=== PATIENT | female | born 1950 | race Caucasian/White ===

== ENCOUNTER 2024-03-23 17:44 | Inpatient (IN) | payer OTHER, BC ==
[2024-03-23 17:52] VITALS: BMI 35.5
[2024-03-23 19:00] LABS: EOS % 1.9 % (0-4.5); HEMATOCRIT 32.7 % (32.4-45.2); HEMOGLOBIN 9.8 GM/dL (10.7-15.3); LYMPH % 15.2 % (8-40); MCH 22.7 pg (25.7-33.7); MCHC 29.9 g/dl (32.0-36.0); MEAN CELL VOLUME 75.8 fl (80-96); MONO % 10.9 % (3.8-10.2); RBC 4.32 M/mm3 (3.60-5.2); RDW 19.5 % (11.6-15.6); WHITE BLOOD COUNT 9.8 K/mm3 (4.0-10.0)
[2024-03-23 19:18] LABS: POTASSIUM 4.9 mmol/L (3.5-5.1)
[2024-03-23 19:20] LABS: CALCIUM 8.8 mg/dL (8.5-10.1)
[2024-03-23 19:21] LABS: ALBUMIN 3.1 g/dl (3.4-5.0); BLOOD UREA NITROGEN 18.4 mg/dL (7-18)
[2024-03-23 19:24] LABS: CREATININE 1.2 mg/dL (0.55-1.3)
[2024-03-23 19:25] LABS: BILIRUBIN,TOTAL 0.4 mg/dL (0.2-1)
[2024-03-23 19:28] LABS: MEAN PLT VOLUME 8.4 fl (7.5-11.1); PLATELET COUNT 338 10^3/uL (134-434)
[2024-03-23 19:29] LABS: N-TERMINAL BNP 1345.9 pg/ml (5-125)
[2024-03-23 19:31] LABS: ACTIVATED PTT 34.5 SECONDS (25.2-36.5); INR 1.05 (0.83-1.09); PROTHROMBIN TIME (PATIENT) 12.1 SEC (9.7-13.0)
[2024-03-24] MEDS: LEVOTHYROXINE NA 112 MCG TABLET (FP) PO SCH (06:31)
[2024-03-24 08:20] LABS: BASO % 0.6 % (0-2.0); EOS % 1.7 % (0-4.5); HEMATOCRIT 30.1 % (32.4-45.2); HEMOGLOBIN 9.2 GM/dL (10.7-15.3); LYMPH % 12.5 % (8-40); MCH 22.8 pg (25.7-33.7); MCHC 30.6 g/dl (32.0-36.0); MEAN CELL VOLUME 74.4 fl (80-96); MONO % 10.9 % (3.8-10.2); NEUT % 74.3 % (42.8-82.8); PLATELET COUNT 319 10^3/uL (134-434); RBC 4.04 M/mm3 (3.60-5.2); RDW 19.4 % (11.6-15.6); WHITE BLOOD COUNT 6.8 K/mm3 (4.0-10.0)
[2024-03-24 08:36] LABS: POTASSIUM 3.4 mmol/L (3.5-5.1)
[2024-03-24 08:40] LABS: ALBUMIN 2.9 g/dl (3.4-5.0); BLOOD UREA NITROGEN 15.3 mg/dL (7-18); CALCIUM 8.7 mg/dL (8.5-10.1); MAGNESIUM 2.2 mg/dL (1.8-2.4)
[2024-03-24 08:45] LABS: BILIRUBIN,TOTAL 0.7 mg/dL (0.2-1); TOT PROT 6.1 g/dl (6.4-8.2)
[2024-03-24 08:51] LABS: RETICULOCYTES 2.96 % (0.5-1.5)
[2024-03-24] MEDS: HYDROCHLOROTHIAZIDE 12.5 MG CAPSULE (FP) PO SCH (09:45)
[2024-03-24] MEDS: ROSUVASTATIN CA 10 MG TABLET PO SCH (09:48)
[2024-03-24] MEDS: PREGABALIN 75 MG CAPSULE PO SCH (09:48)
[2024-03-24] MEDS: ALLOPURINOL 100 MG TABLET (FP) PO SCH (09:48)
[2024-03-24] MEDS: LISINOPRIL 10 MG TABLET PO SCH (09:54)
[2024-03-24] MEDS: traMADol HCL 50 MG TABLET PO SCH (21:52)
[2024-03-25] MEDS: POTASSIUM CHLORIDE ORAL LIQUID 20 MEQ/15 ML PO ONE (08:32)
[2024-03-25] MEDS: IRON SUCROSE INJECTION 100 MG in SODIUM CHLORIDE 95 ML IVPB ONE (11:05)
[2024-03-26 06:59] LABS: HEMATOCRIT 30.5 % (32.4-45.2); HEMOGLOBIN 9.3 GM/dL (10.7-15.3); MCH 22.7 pg (25.7-33.7); MCHC 30.5 g/dl (32.0-36.0); MEAN CELL VOLUME 74.5 fl (80-96); PLATELET COUNT 309 10^3/uL (134-434); RBC 4.09 M/mm3 (3.60-5.2); RDW 19.6 % (11.6-15.6); WHITE BLOOD COUNT 5.9 K/mm3 (4.0-10.0)
[2024-03-26 07:07] LABS: POTASSIUM 3.9 mmol/L (3.5-5.1)
[2024-03-26 07:10] LABS: CALCIUM 8.5 mg/dL (8.5-10.1)
[2024-03-26 07:11] LABS: BLOOD UREA NITROGEN 15.4 mg/dL (7-18)
[2024-03-26 07:14] LABS: CREATININE 1.2 mg/dL (0.55-1.3)
[2024-03-26] MEDS: PEG 3350/NA SULF BICARB CL/KCL 4000 ML SOLN.RECON PO ONE (16:00)
[2024-03-27 06:54] LABS: HEMATOCRIT 28.7 % (32.4-45.2); HEMOGLOBIN 8.8 GM/dL (10.7-15.3); MCH 22.5 pg (25.7-33.7); MCHC 30.5 g/dl (32.0-36.0); MEAN CELL VOLUME 73.8 fl (80-96); MEAN PLT VOLUME 7.9 fl (7.5-11.1); PLATELET COUNT 270 10^3/uL (134-434); RBC 3.89 M/mm3 (3.60-5.2); RDW 19.7 % (11.6-15.6); WHITE BLOOD COUNT 6.7 K/mm3 (4.0-10.0)
[2024-03-27 07:11] LABS: POTASSIUM 3.4 mmol/L (3.5-5.1)
[2024-03-27 07:13] LABS: ALBUMIN 2.8 g/dl (3.4-5.0); CALCIUM 8.5 mg/dL (8.5-10.1); MAGNESIUM 2.1 mg/dL (1.8-2.4)
[2024-03-27 07:16] LABS: CREATININE 1.1 mg/dL (0.55-1.3)
[2024-03-27 07:17] LABS: PHOSPHOROUS 4.4 mg/dL (2.5-4.9)
[2024-03-27 07:18] LABS: BILIRUBIN,TOTAL 0.6 mg/dL (0.2-1); TOT PROT 5.8 g/dl (6.4-8.2)
[2024-03-27] MEDS: POTASSIUM CHLORIDE TABS 20 MEQ TABLET.ER (FP) PO ONE (09:52)
[2024-03-27] MEDS ORDERED: FUROSEMIDE 40 MG/4 ML INJECTABLE VIAL IVPUSH ONE (11:15)
[2024-03-27] MEDS ORDERED: ALBUTEROL SO4 HFA INHALER IH ONE (12:02)
[2024-03-27] MEDS: FUROSEMIDE 40 MG/4 ML INJECTABLE VIAL IVPUSH ONE (14:20)
[2024-03-28 08:49] LABS: HEMATOCRIT 30.7 % (32.4-45.2); HEMOGLOBIN 9.2 GM/dL (10.7-15.3); MCH 22.4 pg (25.7-33.7); MEAN CELL VOLUME 74.7 fl (80-96); MEAN PLT VOLUME 8.3 fl (7.5-11.1); PLATELET COUNT 268 10^3/uL (134-434); RBC 4.11 M/mm3 (3.60-5.2); RDW 19.7 % (11.6-15.6); WHITE BLOOD COUNT 6.9 K/mm3 (4.0-10.0)
[2024-03-28 09:03] LABS: POTASSIUM 3.6 mmol/L (3.5-5.1)
[2024-03-28 09:17] LABS: ALBUMIN 2.8 g/dl (3.4-5.0); CALCIUM 8.5 mg/dL (8.5-10.1)
[2024-03-28 09:18] LABS: BLOOD UREA NITROGEN 13.5 mg/dL (7-18)
[2024-03-28 09:20] LABS: CREATININE 1.1 mg/dL (0.55-1.3); PHOSPHOROUS 4.1 mg/dL (2.5-4.9)
[2024-03-28 09:21] LABS: BILIRUBIN,TOTAL 0.8 mg/dL (0.2-1); TOT PROT 6.1 g/dl (6.4-8.2)
[2024-03-28] MEDS: FERROUS GLUCONATE 324 MG TAB (FP) PO SCH (09:49)
[2024-03-28] MEDS: POTASSIUM CHLORIDE ORAL LIQUID 20 MEQ/15 ML PO ONE (09:53)
[2024-03-28] MEDS ORDERED: metroNIDAZOLE 250 MG TABLET PO SCH (16:00)
[2024-03-28] MEDS: HEPARIN INFUSION - 25,000 UNITS/500 ML INFUS.BAG IVPB SCH (16:04)
[2024-03-28] MEDS: DOXYCYCLINE HYCLATE 100 MG CAPSULE PO SCH (17:06)
[2024-03-28] MEDS: BISMUTH SUBSALICYLATE 524 MG/30 ML PO SCH (17:07)
[2024-03-28] MEDS ORDERED: DOXYCYCLINE HYCLATE 100 MG CAPSULE PO SCH (18:00)
[2024-03-28] MEDS: PANTOPRAZOLE 20 MG TABLET PO SCH (22:31)
[2024-03-28] MEDS: metroNIDAZOLE 500 MG TABLET PO SCH (22:33)
[2024-03-29 07:06] LABS: HEMATOCRIT 31.4 % (32.4-45.2); HEMOGLOBIN 9.5 GM/dL (10.7-15.3); MCH 22.6 pg (25.7-33.7); MCHC 30.2 g/dl (32.0-36.0); MEAN CELL VOLUME 74.9 fl (80-96); MEAN PLT VOLUME 8.3 fl (7.5-11.1); PLATELET COUNT 276 10^3/uL (134-434); RBC 4.19 M/mm3 (3.60-5.2); RDW 19.6 % (11.6-15.6); WHITE BLOOD COUNT 5.5 K/mm3 (4.0-10.0)
[2024-03-29 07:21] LABS: CALCIUM 8.4 mg/dL (8.5-10.1)
[2024-03-29 07:22] LABS: ALBUMIN 2.7 g/dl (3.4-5.0); BLOOD UREA NITROGEN 16.6 mg/dL (7-18); MAGNESIUM 2.2 mg/dL (1.8-2.4)
[2024-03-29 07:25] LABS: CREATININE 1.2 mg/dL (0.55-1.3); PHOSPHOROUS 4.4 mg/dL (2.5-4.9)
[2024-03-29 07:26] LABS: BILIRUBIN,TOTAL 0.5 mg/dL (0.2-1); TOT PROT 5.9 g/dl (6.4-8.2)
[2024-03-29] MEDS: FUROSEMIDE 40 MG/4 ML INJECTABLE VIAL IVPUSH SCH (10:12)
[2024-03-29] MEDS: IRON SUCROSE INJECTION 100 MG in SODIUM CHLORIDE 95 ML IVPB ONE (10:14)
[2024-03-29] MEDS: SODIUM CHLORIDE 500 ML IV SCH (15:40)
[2024-03-29] MEDS ORDERED: ENOXAPARIN NA (PORCINE) 100 MG/1 ML DISP.SYRIN SQ SCH (18:00)
[2024-03-29] MEDS: ENOXAPARIN NA (PORCINE) 100 MG/1 ML DISP.SYRIN SQ SCH (21:07)
[2024-03-30 07:26] LABS: BASO % 0.7 % (0-2.0); EOS % 5.1 % (0-4.5); HEMATOCRIT 32.9 % (32.4-45.2); HEMOGLOBIN 10.2 GM/dL (10.7-15.3); LYMPH % 17.2 % (8-40); MEAN CELL VOLUME 74.2 fl (80-96); MEAN PLT VOLUME 8.7 fl (7.5-11.1); MONO % 10.5 % (3.8-10.2); NEUT % 66.5 % (42.8-82.8); PLATELET COUNT 308 10^3/uL (134-434); RBC 4.44 M/mm3 (3.60-5.2); RDW 20.7 % (11.6-15.6); WHITE BLOOD COUNT 5.8 K/mm3 (4.0-10.0)
[2024-03-30 07:49] LABS: POTASSIUM 3.6 mmol/L (3.5-5.1)
[2024-03-30 07:57] LABS: ALBUMIN 2.9 g/dl (3.4-5.0); BLOOD UREA NITROGEN 19.1 mg/dL (7-18); CALCIUM 8.5 mg/dL (8.5-10.1); MAGNESIUM 2.1 mg/dL (1.8-2.4)
[2024-03-30 08:00] LABS: BILIRUBIN,TOTAL 0.5 mg/dL (0.2-1); CREATININE 1.2 mg/dL (0.55-1.3); PHOSPHOROUS 4.2 mg/dL (2.5-4.9)
[2024-03-30 08:01] LABS: TOT PROT 6.4 g/dl (6.4-8.2)
[2024-03-30] MEDS: SODIUM CHLORIDE 250 ML IV STA ×2 (09:16→14:23)
[2024-03-30] MEDS: ENOXAPARIN NA (PORCINE) 100 MG/1 ML DISP.SYRIN SQ SCH (09:17)
[2024-03-30 09:23] LABS: ANISOCYTOSIS 2+; MACROCYTOSIS 1+
[2024-03-30] MEDS ORDERED: SODIUM CHLORIDE 1,000 ML IV SCH (10:00)
[2024-03-30] MEDS: IRON SUCROSE INJECTION 100 MG in SODIUM CHLORIDE 95 ML IVPB ONE (10:00)
[2024-03-30 12:25] VITALS: RESP 18
[2024-03-30] MEDS: SODIUM CHLORIDE 1,000 ML IV SCH (14:24)
[2024-03-30 17:11] VITALS: PULSE 84
[2024-03-30 21:43] VITALS: BP 116/94; TEMP 9802
== END 2024-03-30 21:53 | disposition home or self-care (01) | DRG 375 ==
LOC: JER 17:44 → INTOOBSV 22:47 → JERBED 22:47 → J4W 03-24 00:34 → OBSVTOIN 03-24 10:56
PROVIDERS: ADMIT Student in an Organized Health Care Education/Training Program; ATTEND Internal Medicine
PROC: 0DB68ZX Excision of Stomach, Via Natural or Artificial Opening Endoscopic, Diagnostic (ICD-10-PCS; 2024-03-27)
PROC: 0DBK8ZX Excision of Ascending Colon, Via Natural or Artificial Opening Endoscopic, Diagnostic (ICD-10-PCS; 2024-03-27)
PROC: 0DB98ZX Excision of Duodenum, Via Natural or Artificial Opening Endoscopic, Diagnostic (ICD-10-PCS; principal; 2024-03-27 12:15)
DX: C18.2 Malignant neoplasm of ascending colon (principal); A04.8 Other specified bacterial intestinal infections; I48.21 Permanent atrial fibrillation; D50.9 Iron deficiency anemia, unspecified; I11.0 Hypertensive heart disease with heart failure; E03.9 Hypothyroidism, unspecified; E78.5 Hyperlipidemia, unspecified; I48.91 Unspecified atrial fibrillation; K63.89 Other specified diseases of intestine; B96.81 Helicobacter pylori [H. pylori] as the cause of diseases classified elsewhere; K29.50 Unspecified chronic gastritis without bleeding; E87.6 Hypokalemia
CPT/HCPCS: 36415; 71045-TC-FY; 71250-TC; 74177-TC; 80048; 80053; 82272; 82550; 82607; 82728; 82746; 83540; 83550; 83735; 83880; 84100; 84436; 84443; 84466; 84484; 85025; 85027; 85045; 85610; 85730; 86850; 86900; 86901; 88305-TC; 88341-TC; 88342-TC; 93005; 93010; 93306-TC; 97116-GP; 97161-GP; 99285-25; G0378; J1644; J1756; Q9967

== ENCOUNTER 2024-04-11 04:22 | Inpatient (IN) | payer OTHER, BC ==
[2024-04-10 13:15] VITALS: BMI 35.3
[2024-04-11] MEDS: BUPIVACAINE HCL/PF 0.25% (2.5MG/ML) 10 ML VIAL IJ ONE
[2024-04-11] MEDS ORDERED: PROPOFOL 40 ML ONE (12:50)
[2024-04-11] MEDS ORDERED: ROCURONIUM BROMIDE 50 MG/5 ML SYRINGE ONE ×3 (12:55→17:44)
[2024-04-11] MEDS ORDERED: SUCCINYLCHOLINE CHLORIDE 200 MG/10 ML SYRINGE ONE (12:56)
[2024-04-11] MEDS ORDERED: BUPIVACAINE HCL/PF 0.25% (2.5MG/ML) 10 ML VIAL ONE (13:07)
[2024-04-11] MEDS ORDERED: MIDAZOLAM HCL 2 MG/2 ML SINGLE DOSE VIAL ONE (14:43)
[2024-04-11] MEDS ORDERED: HEPARIN NA (PORCINE) 5,000 UNITS/ML 1ML VIAL ONE (14:46)
[2024-04-11] MEDS ORDERED: CEFOXITIN SODIUM 2 GM IVPB ONE (14:46)
[2024-04-11] MEDS ORDERED: INDOCYANINE GREEN 25 MG/10 ML VIAL IVPUSH ONE (14:46)
[2024-04-11] MEDS: cefOXitin SODIUM 2 GM VIAL (RESTRICTED TO ID) IVPB ONE (15:20)
[2024-04-11] MEDS ORDERED: DEXAMETHASONE SOD PHOSPHATE 4 MG/1 ML VIAL ONE (15:45)
[2024-04-11] MEDS: BUPIVACAINE HCL/PF 2.5 MG/ML - 30 ML VIAL IJ ONE (15:45)
[2024-04-11] MEDS ORDERED: PREGABALIN 75 MG CAPSULE PO PRN (16:06)
[2024-04-11] MEDS ORDERED: ACETAMINOPHEN INJECTION 100 ML ONE (18:03)
[2024-04-11] MEDS ORDERED: ONDANSETRON 4 MG/2 ML VIAL ONE (18:23)
[2024-04-11] MEDS ORDERED: SUGAMMADEX SODIUM 200 MG/2 ML VIAL ONE (18:24)
[2024-04-11] MEDS ORDERED: ONDANSETRON 4 MG/2 ML VIAL IVPUSH PRN (19:37)
[2024-04-11] MEDS ORDERED: LACTATED RINGERS SOLUTION 1,000 ML IV SCH (19:45)
[2024-04-11] MEDS ORDERED: ceFAZolin SODIUM 1 GM VIAL ONE (19:55)
[2024-04-11] MEDS: CEFAZOLIN 2 GM/D5W 2 GM/50 ML ML IVPB SCH (19:58)
[2024-04-11] MEDS: SODIUM CHLORIDE 1,000 ML IV SCH (20:33)
[2024-04-11] MEDS ORDERED: ENOXAPARIN NA (PORCINE) 100 MG/1 ML DISP.SYRIN SQ SCH (22:00)
[2024-04-11] MEDS: HEPARIN NA (PORCINE) 5,000 UNITS/ML 1ML VIAL SQ SCH (22:09)
[2024-04-11] MEDS: ACETAMINOPHEN 1000 MG/100 ML BAG IVPB SCH (22:56)
[2024-04-11] MEDS: oxyCODONE HCL 5 MG TABLET PO PRN (22:58)
[2024-04-11] MEDS: PANTOPRAZOLE 20 MG TABLET PO SCH (22:58)
[2024-04-11] MEDS: CYANOCOBALAMIN 1,000 MCG TABLET (FP) PO SCH (22:58)
[2024-04-11] MEDS: FERROUS GLUCONATE 324 MG TAB (FP) PO SCH (23:00)
[2024-04-11] MEDS: ONDANSETRON 4 MG/2 ML VIAL IVPUSH PRN (23:04)
[2024-04-12] MEDS: ACETAMINOPHEN 1000 MG/100 ML BAG IVPB SCH (00:46)
[2024-04-12] MEDS: ONDANSETRON 4 MG/2 ML VIAL IVPUSH ONE (06:09)
[2024-04-12] MEDS: LEVOTHYROXINE NA 112 MCG TABLET (FP) PO SCH (06:10)
[2024-04-12] MEDS ORDERED: ENOXAPARIN NA (PORCINE) 40 MG/0.4 ML DISP.SYRIN SQ SCH (10:00)
[2024-04-12] MEDS: ALLOPURINOL 100 MG TABLET (FP) PO SCH (10:01)
[2024-04-12] MEDS: LISINOPRIL 10 MG TABLET PO SCH (10:01)
[2024-04-12 10:25] LABS: HEMATOCRIT 34.5 % (32.4-45.2); HEMOGLOBIN 10.7 GM/dL (10.7-15.3); MCH 24.2 pg (25.7-33.7); MEAN CELL VOLUME 77.9 fl (80-96); MEAN PLT VOLUME 8.9 fl (7.5-11.1); PLATELET COUNT 297 10^3/uL (134-434); RBC 4.42 M/mm3 (3.60-5.2); RDW 25.9 % (11.6-15.6); WHITE BLOOD COUNT 11.9 K/mm3 (4.0-10.0)
[2024-04-12 12:14] LABS: POTASSIUM 4.5 mmol/L (3.5-5.1)
[2024-04-12 12:23] LABS: CALCIUM 8.6 mg/dL (8.5-10.1)
[2024-04-12 12:24] LABS: BLOOD UREA NITROGEN 9.8 mg/dL (7-18)
[2024-04-12] MEDS: ACETAMINOPHEN 500 MG TABLET (FP) PO SCH (13:08)
[2024-04-12] MEDS: LIDOCAINE 5% TOPICAL PATCH TP SCH (17:12)
[2024-04-12] MEDS: IBUPROFEN 600 MG TABLET (FP) PO SCH (17:12)
[2024-04-12] MEDS: TETRACYCLINE PO SCH (18:04)
[2024-04-12] MEDS: [UNRECOGNIZED DRUG - OTHER] PO SCH (18:04)
[2024-04-12] MEDS: BISMUTH PO SCH (18:04)
[2024-04-12] MEDS: ENOXAPARIN NA (PORCINE) 100 MG/1 ML DISP.SYRIN SQ SCH (21:35)
[2024-04-12] MEDS: ROSUVASTATIN CA 10 MG TABLET PO SCH (21:36)
[2024-04-12] MEDS: LIDOCAINE PATCH REMOVAL MC SCH (22:20)
[2024-04-13 08:44] LABS: BASO % 0.1 % (0-2.0); EOS % 0.1 % (0-4.5); HEMATOCRIT 31.4 % (32.4-45.2); HEMOGLOBIN 9.8 GM/dL (10.7-15.3); LYMPH % 6.9 % (8-40); MCH 24.2 pg (25.7-33.7); MCHC 31.2 g/dl (32.0-36.0); MEAN CELL VOLUME 77.7 fl (80-96); MEAN PLT VOLUME 9.1 fl (7.5-11.1); NEUT % 80.9 % (42.8-82.8); PLATELET COUNT 249 10^3/uL (134-434); RBC 4.05 M/mm3 (3.60-5.2); RDW 26.1 % (11.6-15.6); WHITE BLOOD COUNT 8.2 K/mm3 (4.0-10.0)
[2024-04-13 09:22] LABS: CALCIUM 8.5 mg/dL (8.5-10.1)
[2024-04-13 09:23] LABS: ALBUMIN 2.6 g/dl (3.4-5.0); BLOOD UREA NITROGEN 10.4 mg/dL (7-18); MAGNESIUM 1.8 mg/dL (1.8-2.4)
[2024-04-13 09:27] LABS: BILIRUBIN,TOTAL 0.3 mg/dL (0.2-1); TOT PROT 5.4 g/dl (6.4-8.2)
[2024-04-13] MEDS: oxyCODONE HCL 5 MG TABLET PO PRN (09:38)
[2024-04-13] MEDS ORDERED: ENOXAPARIN NA (PORCINE) 40 MG/0.4 ML DISP.SYRIN SQ SCH (10:00)
[2024-04-13 10:18] LABS: ANISOCYTOSIS 2+; MACROCYTOSIS 0; OVALOCYTE 1+
[2024-04-13 21:28] LABS: BASO % 0.5 % (0-2.0); HEMATOCRIT 35.3 % (32.4-45.2); HEMOGLOBIN 10.6 GM/dL (10.7-15.3); LYMPH % 14.1 % (8-40); MCH 23.7 pg (25.7-33.7); MEAN PLT VOLUME 8.3 fl (7.5-11.1); MONO % 11.1 % (3.8-10.2); NEUT % 73.3 % (42.8-82.8); PLATELET COUNT 295 10^3/uL (134-434); RBC 4.47 M/mm3 (3.60-5.2); RDW 27.2 % (11.6-15.6)
[2024-04-13] MEDS ORDERED: ENOXAPARIN NA (PORCINE) 60 MG/0.6 ML DISP.SYRIN SQ SCH (22:00)
[2024-04-13 22:08] LABS: ADD RBC MORPHOLOGY YES
[2024-04-13 22:31] LABS: PLATELET ESTIMATE ADEQUATE
[2024-04-14 09:23] LABS: BASO % 0.3 % (0-2.0); EOS % 2.1 % (0-4.5); HEMATOCRIT 34.2 % (32.4-45.2); HEMOGLOBIN 10.7 GM/dL (10.7-15.3); LYMPH % 12.2 % (8-40); MCH 24.3 pg (25.7-33.7); MCHC 31.3 g/dl (32.0-36.0); MEAN CELL VOLUME 77.4 fl (80-96); MEAN PLT VOLUME 8.9 fl (7.5-11.1); MONO % 10.9 % (3.8-10.2); NEUT % 74.5 % (42.8-82.8); PLATELET COUNT 283 10^3/uL (134-434); RBC 4.42 M/mm3 (3.60-5.2); RDW 25.7 % (11.6-15.6); WHITE BLOOD COUNT 5.9 K/mm3 (4.0-10.0)
[2024-04-14 09:38] LABS: POTASSIUM 4.1 mmol/L (3.5-5.1)
[2024-04-14 09:43] LABS: CALCIUM 8.7 mg/dL (8.5-10.1)
[2024-04-14 09:44] LABS: ALBUMIN 2.7 g/dl (3.4-5.0); MAGNESIUM 1.8 mg/dL (1.8-2.4)
[2024-04-14 09:46] LABS: CREATININE 0.9 mg/dL (0.55-1.3)
[2024-04-14 09:48] LABS: BILIRUBIN,TOTAL 0.4 mg/dL (0.2-1); TOT PROT 5.8 g/dl (6.4-8.2)
[2024-04-14] MEDS: ENOXAPARIN NA (PORCINE) 60 MG/0.6 ML DISP.SYRIN SQ SCH (10:45)
[2024-04-14] MEDS: LISINOPRIL 10 MG TABLET PO SCH (22:47)
[2024-04-14] MEDS ORDERED: PREGABALIN 75 MG CAPSULE PO PRN (23:05)
[2024-04-15] MEDS: LEVOTHYROXINE NA 112 MCG TABLET (FP) PO SCH (06:51)
[2024-04-15] MEDS: ACETAMINOPHEN 500 MG TABLET (FP) PO SCH (06:51)
[2024-04-15 07:45] LABS: BASO % 1.3 % (0-2.0); EOS % 3.8 % (0-4.5); HEMATOCRIT 33.2 % (32.4-45.2); HEMOGLOBIN 10.1 GM/dL (10.7-15.3); LYMPH % 16.8 % (8-40); MCH 23.7 pg (25.7-33.7); MCHC 30.5 g/dl (32.0-36.0); MEAN CELL VOLUME 77.9 fl (80-96); MEAN PLT VOLUME 8.7 fl (7.5-11.1); MONO % 13.3 % (3.8-10.2); NEUT % 64.8 % (42.8-82.8); PLATELET COUNT 272 10^3/uL (134-434); RBC 4.27 M/mm3 (3.60-5.2); RDW 26.7 % (11.6-15.6); WHITE BLOOD COUNT 5.4 K/mm3 (4.0-10.0)
[2024-04-15 08:08] LABS: POTASSIUM 3.8 mmol/L (3.5-5.1)
[2024-04-15 08:15] LABS: CALCIUM 8.2 mg/dL (8.5-10.1)
[2024-04-15 08:16] LABS: ALBUMIN 2.4 g/dl (3.4-5.0); BLOOD UREA NITROGEN 8.1 mg/dL (7-18); MAGNESIUM 1.8 mg/dL (1.8-2.4)
[2024-04-15 08:19] LABS: CREATININE 0.9 mg/dL (0.55-1.3)
[2024-04-15 08:20] LABS: BILIRUBIN,TOTAL 0.4 mg/dL (0.2-1); TOT PROT 5.1 g/dl (6.4-8.2)
[2024-04-15] MEDS: LIDOCAINE 5% TOPICAL PATCH TP SCH (09:48)
[2024-04-15] MEDS: ENOXAPARIN NA (PORCINE) 60 MG/0.6 ML DISP.SYRIN SQ SCH (09:48)
[2024-04-15] MEDS: PANTOPRAZOLE 20 MG TABLET PO SCH (09:49)
[2024-04-15] MEDS: ALLOPURINOL 100 MG TABLET (FP) PO SCH (09:49)
[2024-04-15] MEDS: ONDANSETRON 4 MG/2 ML VIAL IVPUSH PRN (17:02)
[2024-04-15] MEDS: APIXABAN 5 MG TABLET PO SCH (21:26)
[2024-04-15] MEDS: metoPROLOL SUCCINATE 25 MG TAB.SR.24H (FP) PO SCH (21:26)
[2024-04-15] MEDS: ROSUVASTATIN CA 10 MG TABLET PO SCH (21:26)
[2024-04-15] MEDS: LIDOCAINE PATCH REMOVAL MC SCH (21:28)
[2024-04-15] MEDS: LISINOPRIL 10 MG TABLET PO SCH (21:28)
[2024-04-15] MEDS: CYANOCOBALAMIN 1,000 MCG TABLET (FP) PO SCH (21:29)
[2024-04-16] MEDS: MELATONIN 5 MG TABLETS PO PRN (00:24)
[2024-04-16 07:24] LABS: HEMATOCRIT 34.2 % (32.4-45.2); HEMOGLOBIN 10.7 GM/dL (10.7-15.3); MCH 24.2 pg (25.7-33.7); MCHC 31.3 g/dl (32.0-36.0); MEAN CELL VOLUME 77.3 fl (80-96); MEAN PLT VOLUME 8.7 fl (7.5-11.1); PLATELET COUNT 300 10^3/uL (134-434); RBC 4.43 M/mm3 (3.60-5.2); RDW 26.9 % (11.6-15.6); WHITE BLOOD COUNT 4.7 K/mm3 (4.0-10.0)
[2024-04-16 07:32] LABS: POTASSIUM 3.8 mmol/L (3.5-5.1)
[2024-04-16 07:34] LABS: CALCIUM 8.5 mg/dL (8.5-10.1)
[2024-04-16 07:35] LABS: ALBUMIN 2.7 g/dl (3.4-5.0); BLOOD UREA NITROGEN 10.5 mg/dL (7-18)
[2024-04-16 07:38] LABS: CREATININE 0.9 mg/dL (0.55-1.3)
[2024-04-16 07:39] LABS: BILIRUBIN,TOTAL 0.4 mg/dL (0.2-1); TOT PROT 5.7 g/dl (6.4-8.2)
[2024-04-16 09:48] VITALS: BP 124/83; PULSE 85; RESP 18; TEMP 98.8
== END 2024-04-16 14:42 | disposition home or self-care (01) | DRG 330 ==
LOC: J2C 04:22 → J8W 22:09 → J4W 04-14 22:35
PROVIDERS: ADMIT Surgery; ATTEND Internal Medicine
PROC: 0DBU4ZX Excision of Omentum, Percutaneous Endoscopic Approach, Diagnostic (ICD-10-PCS; 2024-04-11)
PROC: 0DTF4ZZ Resection of Right Large Intestine, Percutaneous Endoscopic Approach (ICD-10-PCS; principal; 2024-04-11 15:30)
DX: C18.0 Malignant neoplasm of cecum (principal); C18.2 Malignant neoplasm of ascending colon; E03.9 Hypothyroidism, unspecified; I48.91 Unspecified atrial fibrillation; I10 Essential (primary) hypertension; E78.5 Hyperlipidemia, unspecified; D50.9 Iron deficiency anemia, unspecified; M54.50 Low back pain, unspecified
CPT/HCPCS: 36415; 71275-TC; 74177-TC; 80048; 80053; 83735; 85025; 85027; 86140; 86850; 86900; 86901; 88307-TC; 88309-TC; 88331-TC; 88341-TC; 88342-TC; 93005; 93010; 94760; 97116-GP; 97161-GP; J0131; J1644; Q9967

== ENCOUNTER 2024-05-29 09:26 | Day surgery (SDC) | payer OTHER, BC ==
[2024-05-29] MEDS: SODIUM CHLORIDE 250 ML IV ONE (10:00)
[2024-05-29 10:01] LABS: BASO % 0.4 % (0-2.0); HEMATOCRIT 41.9 % (32.4-45.2); HEMOGLOBIN 13.3 GM/dL (10.7-15.3); LYMPH % 15.4 % (8-40); MCH 26.7 pg (25.7-33.7); MCHC 31.8 g/dl (32.0-36.0); MEAN PLT VOLUME 8.3 fl (7.5-11.1); MONO % 12.9 % (3.8-10.2); NEUT % 69.3 % (42.8-82.8); PLATELET COUNT 260 10^3/uL (134-434); RBC 4.98 M/mm3 (3.60-5.2); RDW 25.8 % (11.6-15.6); WHITE BLOOD COUNT 5.4 K/mm3 (4.0-10.0)
[2024-05-29 10:17] LABS: CHLORIDE 104 mmol/L (98-107); POTASSIUM 4.2 mmol/L (3.5-5.1); SODIUM 138 mmol/L (136-145)
[2024-05-29 10:19] LABS: ANION GAP 4 mmol/L (4-13); CALCIUM 9.4 mg/dL (8.5-10.1); CO2 30 mmol/L (21-32); GLUCOSE,RANDOM 86 mg/dL (74-106)
[2024-05-29 10:20] LABS: ALBUMIN 3.1 g/dl (3.4-5.0); BLOOD UREA NITROGEN 18.4 mg/dL (7-18)
[2024-05-29 10:22] LABS: BILIRUBIN,DIRECT 0.1 mg/dL (0.0-0.2); CREATININE 1.1 mg/dL (0.55-1.3); SGPT/ALT 24 U/L (13-61)
[2024-05-29 10:23] LABS: SGOT/AST 22 U/L (15-37)
[2024-05-29 10:24] LABS: BILIRUBIN,TOTAL 0.5 mg/dL (0.2-1); TOT PROT 6.7 g/dl (6.4-8.2)
[2024-05-29 10:25] LABS: ALK PHOS 111 U/L (45-117)
[2024-05-29 11:19] LABS: ANISOCYTOSIS 2+; MACROCYTOSIS 1+
[2024-05-29] MEDS: DEXAMETHASONE SODIUM PHOSPHATE 10 MG in SODIUM CHLORIDE 50 ML IVPB ONE (11:24)
[2024-05-29] MEDS: PALONOSETRON HCL 0.25 MG/5 ML VIAL IVPUSH ONE (11:24)
[2024-05-29] MEDS: LEUCOVORIN CALCIUM IVPB ONE (11:51)
[2024-05-29] MEDS: WATER IVPB ONE (11:51)
[2024-05-29] MEDS: DEXTROSE 5% IVPB ONE (11:51)
[2024-05-29] MEDS: FLUOROURACIL 2,500 MG/50 ML VIAL IVPUSH ONE (13:37)
[2024-05-29] MEDS: PORTA CATH FLUSH 10 ML IVPUSH PRN (13:38)
[2024-05-29] MEDS: FLUOROURACIL 5,100 MG in SODIUM CHLORIDE 3.8 ML CP ONE (13:39)
[2024-05-29 17:29] VITALS: BP 115/78; PULSE 68; RESP 20; TEMP 97.6
== END 2024-05-29 14:00 | disposition home or self-care (01) ==
LOC: JONCCHEMO 09:26
PROVIDERS: ATTEND Internal Medicine Hematology & Oncology
PROC: 3E04305 Introduction of Other Antineoplastic into Central Vein, Percutaneous Approach (ICD-10-PCS; principal; 2024-05-29)
PROC: 3E043GC Introduction of Other Therapeutic Substance into Central Vein, Percutaneous Approach (ICD-10-PCS; 2024-05-29)
DX: Z51.11 Encounter for antineoplastic chemotherapy (principal); C18.9 Malignant neoplasm of colon, unspecified
CPT/HCPCS: 36415; 80048; 80076; 85025; G0498

== ENCOUNTER 2024-06-19 09:10 | Day surgery (SDC) | payer OTHER, BC ==
[2024-06-19 09:48] LABS: HEMATOCRIT 41.4 % (32.4-45.2); HEMOGLOBIN 13.6 GM/dL (10.7-15.3); MCH 27.8 pg (25.7-33.7); MCHC 32.8 g/dl (32.0-36.0); MEAN CELL VOLUME 84.9 fl (80-96); MEAN PLT VOLUME 8.1 fl (7.5-11.1); PLATELET COUNT 354 10^3/uL (134-434); RBC 4.88 M/mm3 (3.60-5.2); RDW 22.1 % (11.6-15.6); WHITE BLOOD COUNT 3.7 K/mm3 (4.0-10.0)
[2024-06-19 10:00] LABS: BLOOD UREA NITROGEN 17.9 mg/dL (7-18); CALCIUM 8.6 mg/dL (8.5-10.1); CHLORIDE 95 mmol/L (98-107); GLUCOSE,RANDOM 116 mg/dL (74-106); POTASSIUM 3.1 mmol/L (3.5-5.1); SODIUM 138 mmol/L (136-145)
[2024-06-19 10:01] LABS: ANION GAP 10 mmol/L (4-13); CO2 33 mmol/L (21-32)
[2024-06-19 10:04] LABS: CREATININE 1.1 mg/dL (0.55-1.3)
[2024-06-19 10:06] LABS: ALBUMIN 2.9 g/dl (3.4-5.0)
[2024-06-19 10:11] LABS: BILIRUBIN,DIRECT 0.2 mg/dL (0.0-0.2)
[2024-06-19 10:13] LABS: BILIRUBIN,TOTAL 0.5 mg/dL (0.2-1); TOT PROT 6.2 g/dl (6.4-8.2)
[2024-06-19 10:34] LABS: ANISOCYTOSIS 1+; MACROCYTOSIS 0
[2024-06-19] MEDS: SODIUM CHLORIDE 250 ML IV ONE (11:02)
[2024-06-19] MEDS: DEXAMETHASONE SODIUM PHOSPHATE 10 MG in SODIUM CHLORIDE 50 ML IVPB ONE (11:20)
[2024-06-19] MEDS: PALONOSETRON HCL 0.25 MG/5 ML VIAL IVPUSH ONE (11:24)
[2024-06-19] MEDS: LEUCOVORIN INJECTION - 852 MG in DEXTROSE 5%-WATER - 250 ML IVPB ONE (11:43)
[2024-06-19] MEDS: FLUOROURACIL 2,500 MG/50 ML VIAL IVPUSH ONE (14:04)
[2024-06-19] MEDS: SODIUM CHLORIDE CP ONE (14:05)
[2024-06-19] MEDS: FLUOROURACIL CP ONE (14:05)
[2024-06-19 17:08] VITALS: RESP 18; TEMP 98.1
[2024-06-19 17:17] VITALS: BP 101/58; PULSE 55
== END 2024-06-19 14:35 | disposition home or self-care (01) ==
LOC: JONCCHEMO 09:10
PROVIDERS: ATTEND Internal Medicine Hematology & Oncology
PROC: 3E04305 Introduction of Other Antineoplastic into Central Vein, Percutaneous Approach (ICD-10-PCS; principal; 2024-06-19)
PROC: 3E043GC Introduction of Other Therapeutic Substance into Central Vein, Percutaneous Approach (ICD-10-PCS; 2024-06-19)
DX: Z51.11 Encounter for antineoplastic chemotherapy (principal); C18.9 Malignant neoplasm of colon, unspecified
CPT/HCPCS: 36415; 80048; 80076; 85025; 96365; 96366; 96375; G0498

== ENCOUNTER 2024-07-03 09:06 | Day surgery (SDC) | payer OTHER, BC ==
[~2024-07-03 09:06] MED LIST: LEUCOVORIN INJECTION - 852 MG in DEXTROSE 5%-WATER - 250 ML IVPB ONE
[2024-07-03] MEDS: SODIUM CHLORIDE 250 ML IV ONE (09:26)
[2024-07-03 09:31] LABS: BASO % 0.6 % (0-2.0); EOS % 2.3 % (0-4.5); HEMATOCRIT 39.1 % (32.4-45.2); HEMOGLOBIN 12.9 GM/dL (10.7-15.3); LYMPH % 29.9 % (8-40); MCH 28.6 pg (25.7-33.7); MCHC 33.1 g/dl (32.0-36.0); MEAN CELL VOLUME 86.4 fl (80-96); MEAN PLT VOLUME 8.1 fl (7.5-11.1); MONO % 13.6 % (3.8-10.2); NEUT % 53.6 % (42.8-82.8); PLATELET COUNT 170 10^3/uL (134-434); RBC 4.52 M/mm3 (3.60-5.2); RDW 20.8 % (11.6-15.6); WHITE BLOOD COUNT 2.8 K/mm3 (4.0-10.0)
[2024-07-03 09:58] LABS: POTASSIUM 3.6 mmol/L (3.5-5.1)
[2024-07-03 10:04] LABS: ALBUMIN 2.8 g/dl (3.4-5.0); BLOOD UREA NITROGEN 17.5 mg/dL (7-18); CALCIUM 8.2 mg/dL (8.5-10.1)
[2024-07-03 10:07] LABS: BILIRUBIN,DIRECT 0.1 mg/dL (0.0-0.2)
[2024-07-03 10:08] LABS: CREATININE 1.3 mg/dL (0.55-1.3)
[2024-07-03 10:09] LABS: BILIRUBIN,TOTAL 0.5 mg/dL (0.2-1); TOT PROT 5.9 g/dl (6.4-8.2)
[2024-07-03] MEDS: DEXAMETHASONE SODIUM PHOSPHATE 10 MG in SODIUM CHLORIDE 50 ML IVPB ONE (10:31)
[2024-07-03] MEDS: PALONOSETRON HCL 0.25 MG/5 ML VIAL IVPUSH ONE (10:32)
[2024-07-03 10:44] LABS: ANISOCYTOSIS 1+; MACROCYTOSIS 1+; OVALOCYTE 1+
[2024-07-03] MEDS: LEUCOVORIN INJECTION - 852 MG in DEXTROSE 5%-WATER - 250 ML IVPB ONE (11:14)
[2024-07-03] MEDS: PORTA CATH FLUSH 10 ML IVPUSH PRN (12:18)
[2024-07-03] MEDS: SODIUM CHLORIDE CP ONE (12:29)
[2024-07-03] MEDS: FLUOROURACIL 2,500 MG/50 ML VIAL IVPUSH ONE (12:29)
[2024-07-03] MEDS: FLUOROURACIL CP ONE (12:29)
[2024-07-03 16:08] VITALS: BP 94/74; PULSE 50; RESP 18; TEMP 97.4
== END 2024-07-03 12:45 | disposition home or self-care (01) ==
LOC: JONCCHEMO 09:06
PROVIDERS: ATTEND Internal Medicine Hematology & Oncology
DX: Z51.11 Encounter for antineoplastic chemotherapy (principal); C18.9 Malignant neoplasm of colon, unspecified
CPT/HCPCS: 36415; 80048; 80076; 85025; 96367; 96375; 96413; G0498

== ENCOUNTER 2024-07-17 09:30 | Day surgery (SDC) | payer OTHER, BC ==
[2024-07-17 10:24] LABS: CHLORIDE 102 mmol/L (98-107); POTASSIUM 3.3 mmol/L (3.5-5.1); SODIUM 140 mmol/L (136-145)
[2024-07-17 10:25] LABS: CALCIUM 8.5 mg/dL (8.5-10.1)
[2024-07-17 10:26] LABS: ALBUMIN 2.8 g/dl (3.4-5.0); ANION GAP 7 mmol/L (4-13); CO2 30 mmol/L (21-32); GLUCOSE,RANDOM 104 mg/dL (74-106)
[2024-07-17 10:29] LABS: BILIRUBIN,DIRECT 0.1 mg/dL (0.0-0.2); SGOT/AST 21 U/L (15-37); SGPT/ALT 28 U/L (13-61)
[2024-07-17 10:30] LABS: BILIRUBIN,TOTAL 0.6 mg/dL (0.2-1); TOT PROT 6.1 g/dl (6.4-8.2)
[2024-07-17 10:32] LABS: ALK PHOS 98 U/L (45-117)
[2024-07-17 10:48] LABS: ABSOLUTE IMMATURE GRANULOCYTES 0.02 x10^3/uL (0.0-0.031); EOSINOPHILS # 0.04 x10^3/uL (0.04-0.36); HEMATOCRIT 42.3 % (34.1-44.9); HEMOGLOBIN 13.4 g/dL (11.2-15.7); MCHC 31.7 g/dl (32.2-35.5); MEAN PLT VOLUME 9.8 fl (9.4-12.3); PLATELET COUNT # 181 x10^3/uL (182-369); RDW 20.8 % (12.4-16.6)
[2024-07-17] MEDS: SODIUM CHLORIDE 250 ML IV ONE (11:12)
[2024-07-17] MEDS: DEXAMETHASONE SODIUM PHOSPHATE 10 MG in SODIUM CHLORIDE 50 ML IVPB ONE (11:35)
[2024-07-17] MEDS: PALONOSETRON HCL 0.25 MG/5 ML VIAL IVPUSH ONE (11:35)
[2024-07-17 11:38] LABS: BASOPHILS # 0.04 x10^3/uL (0.01-0.08); MONOCYTE # 0.56 x10^3/uL (0.24-0.86)
[2024-07-17] MEDS: LEUCOVORIN INJECTION - 852 MG in DEXTROSE 5%-WATER - 250 ML IVPB ONE (12:00)
[2024-07-17] MEDS: POTASSIUM CHLORIDE TABS 20 MEQ TABLET.ER (FP) PO ONE (12:01)
[2024-07-17] MEDS: FLUOROURACIL 2,500 MG/50 ML VIAL IVPUSH ONE (13:33)
[2024-07-17] MEDS: SODIUM CHLORIDE CP ONE (13:36)
[2024-07-17] MEDS: FLUOROURACIL CP ONE (13:36)
[2024-07-17 16:34] VITALS: TEMP 97.7
[2024-07-17 16:47] VITALS: BP 121/80; PULSE 82; RESP 18
[2024-07-17] MEDS ORDERED: PORTA CATH FLUSH 10 ML IVPUSH PRN (16:47)
== END 2024-07-17 13:40 | disposition home or self-care (01) ==
LOC: JONCCHEMO 09:30
PROVIDERS: ATTEND Internal Medicine Hematology & Oncology
PROC: 3E043GC Introduction of Other Therapeutic Substance into Central Vein, Percutaneous Approach (ICD-10-PCS; principal; 2024-07-17)
PROC: 3E043GC Introduction of Other Therapeutic Substance into Central Vein, Percutaneous Approach (ICD-10-PCS; 2024-07-17)
DX: C18.9 Malignant neoplasm of colon, unspecified (principal); Z76.89 Persons encountering health services in other specified circumstances
CPT/HCPCS: 36415; 80048; 80076; 85025; 96365; 96374; 96375; G0498

== ENCOUNTER 2024-08-07 09:28 | Day surgery (SDC) | payer OTHER, BC ==
[2024-08-07 09:58] LABS: ABSOLUTE IMMATURE GRANULOCYTES 0.05 x10^3/uL (0.0-0.031); BASOPHILS # 0.02 x10^3/uL (0.01-0.08); EOSINOPHIL % 2.1 % (0.7-5.8); EOSINOPHILS # 0.09 x10^3/uL (0.04-0.36); HEMATOCRIT 42.6 % (34.1-44.9); HEMOGLOBIN 13.3 g/dL (11.2-15.7); MCHC 31.2 g/dl (32.2-35.5); MEAN CELL VOLUME 92.6 fl (79.4-94.8); MEAN PLT VOLUME 10.3 fl (9.4-12.3); MONOCYTE # 0.76 x10^3/uL (0.24-0.86); MONOCYTE % 18.1 % (4.7-12.5); PLATELET COUNT 311 x10^3/uL (182-369); RDW 23.2 % (12.4-16.6)
[2024-08-07 10:18] LABS: POTASSIUM 3.2 mmol/L (3.5-5.1)
[2024-08-07 10:22] LABS: ALBUMIN 2.9 g/dl (3.4-5.0); BLOOD UREA NITROGEN 12.9 mg/dL (7-18); CALCIUM 8.8 mg/dL (8.5-10.1)
[2024-08-07] MEDS: SODIUM CHLORIDE 250 ML IV ONE (10:23)
[2024-08-07 10:25] LABS: BILIRUBIN,DIRECT 0.2 mg/dL (0.0-0.2)
[2024-08-07 10:26] VITALS: TEMP 98.6
[2024-08-07 10:27] LABS: BILIRUBIN,TOTAL 0.8 mg/dL (0.2-1); TOT PROT 6.1 g/dl (6.4-8.2)
[2024-08-07] MEDS: DEXAMETHASONE SODIUM PHOSPHATE 10 MG in SODIUM CHLORIDE 50 ML IVPB ONE (11:07)
[2024-08-07] MEDS: PALONOSETRON HCL 0.25 MG/5 ML VIAL IVPUSH ONE (11:28)
[2024-08-07] MEDS: LEUCOVORIN INJECTION - 852 MG in DEXTROSE 5%-WATER - 250 ML IVPB ONE (11:32)
[2024-08-07] MEDS: POTASSIUM CHLORIDE TABS 20 MEQ TABLET.ER (FP) PO ONE (13:49)
[2024-08-07] MEDS: KCL 10 MEQ IVPB 10 MEQ/100 ML INFUS.BAG IVPB ONE (13:49)
[2024-08-07] MEDS: FLUOROURACIL CP ONE (15:07)
[2024-08-07] MEDS: FLUOROURACIL 2,500 MG/50 ML VIAL IVPUSH ONE (15:07)
[2024-08-07] MEDS: SODIUM CHLORIDE CP ONE (15:07)
[2024-08-07 15:32] VITALS: BP 105/71; PULSE 70; RESP 18
== END 2024-08-07 15:35 | disposition home or self-care (01) ==
LOC: JONCCHEMO 09:28
PROVIDERS: ATTEND Internal Medicine Hematology & Oncology
PROC: 3E04305 Introduction of Other Antineoplastic into Central Vein, Percutaneous Approach (ICD-10-PCS; principal; 2024-08-07)
PROC: 3E043GC Introduction of Other Therapeutic Substance into Central Vein, Percutaneous Approach (ICD-10-PCS; 2024-08-07)
DX: Z51.11 Encounter for antineoplastic chemotherapy (principal); C18.9 Malignant neoplasm of colon, unspecified
CPT/HCPCS: 36415; 80048; 80076; 85025; 96366; 96367; 96375; 96409; G0498